=== PATIENT | female | born 1965 | race Caucasian/White ===

== ENCOUNTER 2017-02-28 00:30 | Inpatient (IN) | payer OTHER ==
[2017-02-28] MEDS: SOD CHLORIDE 0.9% 500 ML IV (00:59)
[2017-02-28 01:42] LABS: URINE BLOOD (Dip) POC Trace-intact (NEGATIVE); URINE GLUCOSE (Dip) POC Negative (NEGATIVE); URINE KETONES (Dip) POC Negative (NEGATIVE); URINE LEUKOCYTE EST (Dip) POC Negative (NEGATIVE); URINE NITRITE (Dip) POC Negative (NEGATIVE); URINE TOTAL PROTEIN POC Trace (NEGATIVE)
[2017-02-28] MEDS: morphine 4 MG/ML VIAL IV (02:16)
[2017-02-28] MEDS: ONDANSETRON 4 MG INJ IV (02:16)
[2017-02-28 02:26] LABS: ADD MAN DIFF? NO
[2017-02-28 02:30] LABS: WHITE BLOOD COUNT 6.6 10^3/ul (4.8-10.8)
[2017-02-28 02:30] LABS: BASOPHILS % 0.2 % (0.0-2.0); EOSINOPHILS % 0.6 % (0.0-7.0); HEMATOCRIT 38.2 % (37.0-47.0); LYMPHOCYTES # 0.8 10^3/ul (0.8-2.9); LYMPHOCYTES % 11.5 % (15.0-51.0); MEAN CORPUSCULAR HEMOGLOBIN 29.6 pg (29.0-33.0); MEAN PLATELET VOLUME 11.8 fl (7.4-10.4); MONOCYTE # 0.5 10^3/ul (0.3-0.9); MONOCYTES % 7.7 % (0.0-11.0); NEUTROPHIL # 5.3 10^3/ul (1.6-7.5); NEUTROPHILS % 79.8 % (39.0-77.0); PLATELET COUNT 199 10^3/UL (140-415); RED BLOOD COUNT 4.39 10^6/ul (4.20-5.40); RED CELL DISTRIBUTION WIDTH 13.6 % (11.5-14.5)
[2017-02-28 02:35] LABS: ADD UMIC NO; UR ASCORBIC ACID NEGATIVE (NEGATIVE); UR BACTERIA FEW /HPF (NONE SEEN); UR BILIRUBIN (Dip) NEGATIVE (NEGATIVE); UR BLOOD (Dip) NEGATIVE (NEGATIVE); UR CLARITY SLIGHTLY CLOUDY (CLEAR); UR COLOR YELLOW (YELLOW); UR GLUCOSE (Dip) NEGATIVE (NEGATIVE); UR KETONES (Dip) NEGATIVE (NEGATIVE); UR LEUKOCYTE ESTERASE (Dip) NEGATIVE Leu/ul (NEGATIVE); UR NITRITE (Dip) NEGATIVE (NEGATIVE); UR RBC 0 /HPF (0-5); UR SQUAMOUS EPITHELIAL CELL FEW /HPF (FEW); UR TOTAL PROTEIN (Dip) NEGATIVE (NEGATIVE); UR UROBILINOGEN (Dip) 2+ mg/dL (NEGATIVE); UR WBC 1 /HPF (0-5)
[2017-02-28 02:58] LABS: ALANINE AMINOTRANSFERASE 23 IU/L (13-69); ALBUMIN 4.9 g/dl (3.3-4.9); ALBUMIN/GLOBULIN RATIO 1.36; ALKALINE PHOSPHATASE 126 IU/L (42-121); ANION GAP 18 (8-16); ASPARTATE AMINO TRANSFERASE 87 IU/L (15-46); BILIRUBIN,INDIRECT 0.5 mg/dl (0-1.1); BILIRUBIN,TOTAL 0.5 mg/dl (0.2-1.3); BLOOD UREA NITROGEN 13 mg/dl (7-20); CALCIUM 8.6 mg/dl (8.4-10.2); CARBON DIOXIDE 24 mmol/L (21-31); CHLORIDE 103 mmol/L (97-110); CREATININE 0.53 mg/dl (0.44-1.00); GLUCOSE 168 mg/dl (70-220); LIPASE 119 U/L (23-300); SODIUM 139 mmol/L (135-144); TOTAL PROTEIN 8.5 g/dl (6.1-8.1)
[2017-02-28] MEDS ORDERED: NACL 0.9% 3 ML SYG IV (06:30)
[2017-02-28] MEDS ORDERED: DEXTROSE 50% 50 ML SYRINGE IV ×2 (06:30)
[2017-02-28] MEDS ORDERED: GLUCAGON 1 MG INJ IM (06:30)
[2017-02-28] MEDS ORDERED: GLUCOSE GEL 15 GRAM TUBE PO ×2 (06:30)
[2017-02-28] MEDS ORDERED: ALBUTEROL/IPRATROPIUM (NEB) 3 ML AMP HHN (06:30)
[2017-02-28] MEDS ORDERED: GLUCOSE GEL 15 GRAM TUBE BUCCAL (06:30)
[2017-02-28] MEDS ORDERED: ONDANSETRON 4 MG INJ IV (06:30)
[2017-02-28] MEDS ORDERED: morphine 2 MG INJ IV (06:30)
[2017-02-28] MEDS: INSULIN ASPART [NOVOLOG] 3 ML PEN SC ×4 (07:50→20:54)
[2017-02-28] MEDS: INSULIN GLARGINE [LANtus] 3 ML PEN SC (08:00)
[2017-02-28] MEDS: PIPER-TAZO 3.375 GM IV (PMX) 50 ML IVPB ×3 (08:57→22:52)
[2017-02-28] MEDS: DEXTROSE 5%-0.45% NACL 1,000 ML IV ×3 (10:50→22:48)
[2017-02-28] MEDS: KETOROLAC 30 MG INJ IV ×2 (10:51→17:33)
[2017-02-28] MEDS: FAMOTIDINE 20 MG INJ IV ×2 (11:02→20:43)
[2017-02-28] MEDS: IOHEXOL 14.3 MG(I)/ML (ADULT) BTL PO (12:37)
[2017-02-28] MEDS: metroNIDAZOLE 500 MG/NS (PMX) 100 ML IVPB ×2 (15:14→23:33)
[2017-02-28] MEDS: SOD CHLORIDE 0.9% 100 ML (16:26)
[2017-02-28] MEDS: IOHEXOL 300MG/ML 150 ML BTL (16:26)
[2017-02-28] MEDS: CIPROFLOXACIN 400MG/D5W 200 ML IVPB ×2 (17:28→20:45)
[2017-03-01] MEDS: ACCU-CHEK XX (02:00)
[2017-03-01 05:36] LABS: ADD MAN DIFF? NO
[2017-03-01 05:44] LABS: BASOPHILS % 0.6 % (0.0-2.0); EOSINOPHILS # 0.1 10^3/ul (0.0-0.5); EOSINOPHILS % 1.8 % (0.0-7.0); HEMATOCRIT 35.7 % (37.0-47.0); HEMOGLOBIN 12.3 g/dl (12.0-16.0); LYMPHOCYTES # 1.3 10^3/ul (0.8-2.9); LYMPHOCYTES % 37.5 % (15.0-51.0); MEAN CORPUSCULAR HEMOGLOBIN 29.9 pg (29.0-33.0); MEAN CORPUSCULAR HGB CONC 34.5 g/dl (32.0-37.0); MEAN CORPUSCULAR VOLUME 86.9 fl (82.0-101.0); MEAN PLATELET VOLUME 10.6 fl (7.4-10.4); MONOCYTE # 0.4 10^3/ul (0.3-0.9); MONOCYTES % 10.9 % (0.0-11.0); NEUTROPHIL # 1.7 10^3/ul (1.6-7.5); NEUTROPHILS % 48.9 % (39.0-77.0); PLATELET COUNT 180 10^3/UL (140-415); RED BLOOD COUNT 4.11 10^6/ul (4.20-5.40); RED CELL DISTRIBUTION WIDTH 13.5 % (11.5-14.5)
[2017-03-01 05:44] LABS: WHITE BLOOD COUNT 3.4 10^3/ul (4.8-10.8)
[2017-03-01] MEDS: KETOROLAC 30 MG INJ IV (06:10)
[2017-03-01] MEDS: PIPER-TAZO 3.375 GM IV (PMX) 50 ML IVPB (06:14)
[2017-03-01] MEDS: DEXTROSE 5%-0.45% NACL 1,000 ML IV (06:23)
[2017-03-01 06:26] LABS: ALANINE AMINOTRANSFERASE 44 IU/L (13-69); ALBUMIN 3.4 g/dl (3.3-4.9); ALBUMIN/GLOBULIN RATIO 1.09; ALKALINE PHOSPHATASE 68 IU/L (42-121); ANION GAP 12 (8-16); ASPARTATE AMINO TRANSFERASE 31 IU/L (15-46); BILIRUBIN,INDIRECT 0.2 mg/dl (0-1.1); BILIRUBIN,TOTAL 0.2 mg/dl (0.2-1.3); BLOOD UREA NITROGEN 9 mg/dl (7-20); CALCIUM 8.8 mg/dl (8.4-10.2); CARBON DIOXIDE 27 mmol/L (21-31); CHLORIDE 106 mmol/L (97-110); CREATININE 0.59 mg/dl (0.44-1.00); GLUCOSE 106 mg/dl (70-220); MAGNESIUM 1.9 mg/dl (1.7-2.5); PHOSPHORUS 4.8 mg/dl (2.5-4.9); POTASSIUM 3.6 mmol/L (3.5-5.1); SODIUM 141 mmol/L (135-144); TOTAL PROTEIN 6.5 g/dl (6.1-8.1)
[2017-03-01] MEDS: metroNIDAZOLE 500 MG/NS (PMX) 100 ML IVPB (06:43)
[2017-03-01] MEDS: INSULIN ASPART [NOVOLOG] 3 ML PEN SC (07:50)
[2017-03-01] MEDS: INSULIN GLARGINE [LANtus] 3 ML PEN SC (08:00)
[2017-03-01] MEDS: FAMOTIDINE 20 MG INJ IV (08:27)
[2017-03-01] MEDS: CIPROFLOXACIN 400MG/D5W 200 ML IVPB (08:28)
[2017-03-01 09:14] LABS: CANCER ANTIGEN 125 < 5.5 U/ml (0.0-35.0)
[2017-03-01 12:11] LABS: CARCINOEMBRYONIC ANTIGEN 0.5 ng/ml (0.0-5.0)
== END 2017-03-01 13:20 | disposition home or self-care (01) | DRG 392 ==
LOC: E/R 00:30 → MS1 03:21
DX: K52.89 Other specified noninfective gastroenteritis and colitis (principal); K56.609 Unspecified intestinal obstruction, unspecified as to partial versus complete obstruction; E11.9 Type 2 diabetes mellitus without complications; I10 Essential (primary) hypertension
CPT/HCPCS: 71045; 74176; 74177; 80053; 81001; 81003; 82378; 82962; 83690; 83735; 84100; 85025; 86301; 86304; 87045; 96374; 96375; 99285-25

== ENCOUNTER 2018-01-12 20:40 | Emergency (ER) | payer OTHER ==
[2018-01-12 22:15] LABS: ADD MAN DIFF? NO
[2018-01-12 22:19] LABS: BASOPHILS % 0.6 % (0.0-2.0); EOSINOPHILS % 0.6 % (0.0-7.0); HEMATOCRIT 39.2 % (37.0-47.0); HEMOGLOBIN 13.2 g/dl (12.0-16.0); LYMPHOCYTES # 2.5 10^3/ul (0.8-2.9); LYMPHOCYTES % 35.2 % (15.0-51.0); MEAN CORPUSCULAR HEMOGLOBIN 29.9 pg (29.0-33.0); MEAN CORPUSCULAR HGB CONC 33.7 g/dl (32.0-37.0); MEAN CORPUSCULAR VOLUME 88.7 fl (82.0-101.0); MEAN PLATELET VOLUME 10.4 fl (7.4-10.4); MONOCYTE # 0.6 10^3/ul (0.3-0.9); NEUTROPHIL # 3.9 10^3/ul (1.6-7.5); NEUTROPHILS % 55.5 % (39.0-77.0); PLATELET COUNT 254 10^3/UL (140-415); RED BLOOD COUNT 4.42 10^6/ul (4.20-5.40); RED CELL DISTRIBUTION WIDTH 13.1 % (11.5-14.5)
[2018-01-12 22:37] LABS: ALANINE AMINOTRANSFERASE 31 IU/L (13-69); ALBUMIN 4.5 g/dl (3.3-4.9); ALBUMIN/GLOBULIN RATIO 1.21; ALKALINE PHOSPHATASE 102 IU/L (42-121); ANION GAP 13 (5-13); ASPARTATE AMINO TRANSFERASE 29 IU/L (15-46); BILIRUBIN,INDIRECT 0.5 mg/dl (0-1.1); BILIRUBIN,TOTAL 0.5 mg/dl (0.2-1.3); BLOOD UREA NITROGEN 20 mg/dl (7-20); CALCIUM 9.6 mg/dl (8.4-10.2); CARBON DIOXIDE 27 mmol/L (21-31); CHLORIDE 103 mmol/L (97-110); Estimated GFR > 60 mL/min (>60); GLUCOSE 118 mg/dl (70-220); POTASSIUM 4.3 mmol/L (3.5-5.1); SODIUM 143 mmol/L (135-144); TOTAL PROTEIN 8.2 g/dl (6.1-8.1)
[2018-01-12 22:49] LABS: INR 0.82; PROTIME 11.3 Sec (11.9-14.9); PT RATIO 0.9; TROPONIN-I < 0.012 ng/ml (0.000-0.120)
== END 2018-01-13 00:10 | disposition home or self-care (01) ==
LOC: E/R 01-13 00:10
DX: M79.602 Pain in left arm (principal); J45.909 Unspecified asthma, uncomplicated; E11.9 Type 2 diabetes mellitus without complications; Z79.82 Long term (current) use of aspirin; Z79.84 Long term (current) use of oral hypoglycemic drugs
CPT/HCPCS: 73030; 80053; 84484; 85025; 85610; 93971; 99285-25